=== PATIENT | female | born 1980 | race Caucasian/White ===

== ENCOUNTER 2025-06-15 16:26 | Emergency (ER) | payer MEDICAID ==
[~2025-06-15] VITALS: Ht 152.4 cm; Wt 83.0 kg
[2025-06-15 16:39] VITALS: O2SAT 99
[2025-06-15 20:07] LABS: PLATELET 386 x1000/uL (130-400); RED BLOOD CELL COUNT 4.83 mill/uL (4.2-5.4); RED CELL DISTRIBUTION WIDTH 13.8 % (11.6-14.6)
[2025-06-15 20:22] LABS: CREATININE 0.7 mg/dL (0.6-1.0); UREA NITROGEN BLOOD 13 mg/dL (9-23)
[2025-06-15 20:27] LABS: T4 FREE 1.27 ng/dL (0.89-1.76)
[2025-06-15] MEDS ORDERED: IBUP-1455 MT (20:39)
[2025-06-15] MEDS ORDERED: TOPUD PO (20:39)
[2025-06-15] MEDS: KETOROLAC 30MG/ML VIAL IM ONE (21:01)
[2025-06-15 21:03] VITALS: BP 172/69; PULSE 78; RESP 15; TEMP 36.6; O2SAT 98
== END 2025-06-15 21:03 | disposition home or self-care (01) ==
LOC: ER 16:26
DX: D72.829 Elevated white blood cell count, unspecified (principal); R20.2 Paresthesia of skin; I10 Essential (primary) hypertension; Z98.890 Other specified postprocedural states
CPT/HCPCS: 99284; 80048; 84439; 83735; 84443; 85027; 36415; 93005; 96372; J1885